=== PATIENT | female | born 1985 | race African-American/Black ===

== ENCOUNTER 2020-07-31 05:30 | Inpatient (IN) ==
[2020-07-16 11:57] LABS: Basophils % 0.2 % (0.0-0.8); Eosinophils # 0.1 10*3/uL (0.0-0.87); Hematocrit 42.6 VOL% (35.7-47.0); Hemoglobin 13.5 GM/DL (12.0-16.0); Immature Granulocytes % 0.2 %; Immature Granulocytes Absolute 0.02 #; Lymphocytes # 3.9 10*3/uL (1.4-4.0); Lymphocytes % 37.3 % (21.3-54.2); Mean Corpuscular HGB Conc 31.7 GM/DL (32-36); Mean Corpuscular Volume 85.5 FL (87-102); Mean Platelet Volume 11.4 FL (9.6-12.0); Monocytes % 7.2 % (1.7-12.7); Neutrophils % 54.1 % (38.7-73.9); Platelet Count 288 T/CUMM (130-400); Red Blood Count 4.98 MC/CUMM (3.8-5.5); Red Cell Distribution Width 13.1 % (9.3-17.3); White Blood Count 10.4 T/CUMM (4-12)
[2020-07-16 12:31] LABS: Calcium 9.2 MG/DL (8.5-10.1); Osmolality,Calculated 272.8 MOS/KG (273-304); Potassium 4.1 MMOL/L (3.5-5.1)
[2020-07-31] MEDS ORDERED: LACTATED RINGERS 1,000 ML IV SCH ×2 (06:00→15:30)
[2020-07-31] MEDS ORDERED: MUPIROCIN 2% OINT 22 GM TUBE TOP ONE (06:16)
[2020-07-31] MEDS ORDERED: OXYMETAZOLINE 0.05% NASAL SPRAY 15 ML BOTTLE ONE (06:17)
[2020-07-31] MEDS ORDERED: LIDOCAINE 1%/EPI INJ 20 ML VIAL ONE (06:17)
[2020-07-31] MEDS ORDERED: amLODIPine 5 MG TABLET PO STA (07:14)
[2020-07-31] MEDS ORDERED: FAMOTIDINE 20 MG TABLET PO ONE (07:16)
[2020-07-31] MEDS ORDERED: DIAZEPAM 5 MG TABLET PO ONE (07:16)
[2020-07-31] MEDS ORDERED: DIAZEPAM 5 MG TABLET ONE (07:24)
[2020-07-31] MEDS ORDERED: FAMOTIDINE 20 MG TABLET ONE (07:25)
[2020-07-31] MEDS ORDERED: amLODIPine 5 MG TABLET ONE ×2 (07:25)
[2020-07-31] MEDS ORDERED: fentaNYL 100 MCG/2 ML VIAL ONE (09:19)
[2020-07-31] MEDS ORDERED: MIDAZOLAM 2 MG/2 ML VIAL ONE (09:19)
[2020-07-31] MEDS ORDERED: propofoL 200 MG/20 ML VIAL IV ONE (09:54)
[2020-07-31] MEDS ORDERED: ONDANSETRON 4 MG/2 ML VIAL ONE (10:13)
[2020-07-31] MEDS ORDERED: LACTATED RINGERS 1,000 ML IV ONE (10:13)
[2020-07-31] MEDS ORDERED: SEVOFLURANE 1 UNIT/15 MINUTE INH ONE ×4 (10:13→10:18)
[2020-07-31] MEDS ORDERED: ROCURONIUM 50 MG/5 ML VIAL IV ONE (10:13)
[2020-07-31] MEDS ORDERED: SUCCINYLCHOLINE 200 MG/10 ML VIAL ONE (10:13)
[2020-07-31] MEDS ORDERED: MINERAL OIL/PETROLATUM OPH OINT 3.5 GM TUBE ONE (10:13)
[2020-07-31] MEDS ORDERED: LIDOCAINE 2% 5 ML VIAL ONE (10:14)
[2020-07-31] MEDS ORDERED: LABETALOL 20 MG/4 ML SYRINGE IV ONE (10:29)
[2020-07-31] MEDS ORDERED: hydrALAZINE 20 MG/1 ML VIAL ONE (10:29)
[2020-07-31] MEDS ORDERED: HYDROmorphone 2 MG/1 ML VIAL ONE (10:49)
[2020-07-31] MEDS ORDERED: HYDROmorphone 2 MG/1 ML VIAL IV PRN ×2 (10:50→15:10)
[2020-07-31] MEDS ORDERED: hydrALAZINE 20 MG/1 ML VIAL IV STA (12:29)
[2020-07-31] MEDS ORDERED: ALBUTEROL/IPRATROPIUM 3 ML NEB RESP TX STA (13:29)
[2020-07-31] MEDS ORDERED: ONDANSETRON 4 MG/2 ML VIAL IV PRN (15:09)
[2020-07-31] MEDS ORDERED: PROMETHAZINE 25 MG/1 ML VIAL IM PRN (15:09)
[2020-07-31] MEDS ORDERED: ACETAMINOPHEN 325 MG/10.15 ML UDCUP PO PRN (15:11)
[2020-07-31] MEDS ORDERED: ALPRAZolam 0.5 MG TABLET PO PRN (15:15)
[2020-07-31] MEDS: SERTRALINE 50 MG TABLET PO SCH (20:53)
[2020-07-31] MEDS: PANTOPRAZOLE 40 MG TABLET PO SCH (20:53)
[2020-08-01] MEDS: PANTOPRAZOLE 40 MG TABLET PO SCH ×2 (09:16→22:00)
[2020-08-01] MEDS: metFORMIN 500 MG TABLET PO SCH (09:16)
[2020-08-01] MEDS: amLODIPine 5 MG TABLET PO SCH (09:16)
[2020-08-01] MEDS ORDERED: ALBUTEROL/IPRATROPIUM 3 ML NEB RESP TX PRN (11:06)
[2020-08-01] MEDS ORDERED: ONDANSETRON 4 MG TABLET PO PRN (12:01)
[2020-08-01] MEDS: SERTRALINE 50 MG TABLET PO SCH (22:00)
[2020-08-01] MEDS ORDERED: diphenhydrAMINE CAP 25 MG CAPSULE PO PRN (22:28)
[2020-08-02 07:29] VITALS: BP 132/74
[2020-08-02] MEDS: PANTOPRAZOLE 40 MG TABLET PO SCH (08:39)
[2020-08-02] MEDS: metFORMIN 500 MG TABLET PO SCH (08:39)
[2020-08-02] MEDS: amLODIPine 5 MG TABLET PO SCH (08:39)
== END 2020-08-02 11:19 | disposition home or self-care (01) | DRG 144 ==
LOC: N.OR 05:30 → N.SDSINP 05:30 → N.3E 14:05
PROVIDERS: ADMIT Otolaryngology; ATTEND Otolaryngology